=== PATIENT | male | born 1940 | race Caucasian/White ===

== ENCOUNTER 2016-07-09 11:23 | Inpatient (IN) | payer MEDICARE, OTHER ==
[~2016-07-09] VITALS: Ht 182.9 cm; Wt 79.4 kg
[2016-07-09] MEDS ORDERED: ALBUTEROL FS 2.5 MG/3 ML VIAL.NEB NEB ONE (11:30)
[2016-07-09] MEDS ORDERED: IPRATROPIUM NEB FS 0.5 MG/2.5 ML AMPUL.NEB NEB ONE (11:30)
[2016-07-09] MEDS ORDERED: ALBUTEROL FS 2.5 MG/3 ML VIAL.NEB ONE (11:41)
[2016-07-09] MEDS ORDERED: IPRATROPIUM NEB FS 0.5 MG/2.5 ML AMPUL.NEB ONE (11:41)
[2016-07-09 11:49] LABS: APPEARANCE,URINE Clear (CLEAR); BILIRUBIN,URINE Negative (NEGATIVE); BLOOD, URINE Trace-intact Ery/uL (NEGATIVE); COLOR,URINE Yellow (YELLOW); KETONES,URINE Negative (NEGATIVE); LEUKOCYTE ESTERASE ,URINE Negative (NEGATIVE); NITRITE, URINE Negative (NEGATIVE); PH,URINE 5.5 (5.0-8.0); PROTEIN,URINE 100 mg/dl (NEGATIVE); UGLUCOSE Negative (NEGATIVE); UROBILINOGEN,URINE 0.2 EU/dL (0.2)
[2016-07-09 11:52] LABS: BASOPHILS % (AUTO) 0.3 % (0.0-2.0); EOSINOPHILS # (AUTO) 0.3 /CMM (0.0-0.7); EOSINOPHILS % (AUTO) 3.5 % (0.0-6.0); HEMATOCRIT 39 % (39-51); HEMOGLOBIN 13.1 g/dL (13.5-17.5); LYMPHOCYTES # (AUTO) 0.8 /CMM (0.8-4.8); LYMPHOCYTES % (AUTO) 8.3 % (20.0-44.0); MEAN CORPUSCULAR HEMOGLOBIN 33 PG (26.0-33.0); MEAN CORPUSCULAR HGB CONC 33 g/dl (31.0-36.0); MEAN CORPUSCULAR VOLUME 99 fL (80-96); MONOCYTES # (AUTO) 0.8 /CMM (0.1-1.30); MONOCYTES % (AUTO) 8.9 % (2.0-12.0); NEUTROPHILS # (AUTO) 7.4 /CMM (1.8-8.9); PLATELET COUNT (AUTO) 183 /CMM (150-450); RDW COEFFICIENT OF VARIATION 13.8 (11.5-15.0); RED BLOOD CELL COUNT(AUTO) 3.94 MIL/uL (4.5-6.0); WHITE BLOOD COUNT (AUTO) 9.3 K/uL (4.3-11.0)
[2016-07-09 12:01] LABS: CARBON DIOXIDE 28 mmol/L (21-32); CHLORIDE 108 mmol/L (98-107); CREATININE 1.2 mg/dL (0.6-1.3); GLUCOSE 111 mg/dL (74-106); POTASSIUM 4.1 mmol/L (3.5-5.1); SODIUM SERUM 142 mmol/L (136-145); UREA NITROGEN, BLOOD 39 mg/dL (7-18)
[2016-07-09 12:05] LABS: PROTHROMBIN TIME 10.4 SECS (9.5-12.7)
[2016-07-09 12:06] LABS: BACTERIA,URINE Rare /HPF (None Seen); RBC,URINE 0-2 /HPF (0-2); SQUAMOUS EPITHELIAL CELL,UR Few /HPF (None Seen); WBC,URINE 0-2 /HPF (0-3)
[2016-07-09 12:07] LABS: ALANINE AMINOTRANSFERASE 16 U/L (12-78); ALBUMIN 2.8 g/dL (3.4-5.0); ALKALINE PHOSPHATASE 225 U/L (46-116); ASPARTATE AMINOTRANSFERASE 34 U/L (15-37); BILIRUBIN,DIRECT 0.1 mg/dL (0.0-0.2); BILIRUBIN,TOTAL 0.3 mg/dL (0.2-1.0)
[2016-07-09 12:08] LABS: TROPONIN I < 0.017 ng/mL (0.00-0.056)
[2016-07-09] MEDS ORDERED: FINA5TAB11 GT (12:09)
[2016-07-09] MEDS ORDERED: DEXT15DR6 EACHEYE (12:09)
[2016-07-09] MEDS ORDERED: LACT-209 GT (12:09)
[2016-07-09] MEDS ORDERED: HYDR-4077 GT (12:09)
[2016-07-09] MEDS ORDERED: CARB-93 GT (12:09)
[2016-07-09] MEDS ORDERED: MEMA10TA GT (12:09)
[2016-07-09] MEDS ORDERED: CLON0.1T GT (12:09)
[2016-07-09] MEDS ORDERED: MULT1TAB11 GT (12:09)
[2016-07-09] MEDS ORDERED: FERR-58 GT (12:09)
[2016-07-09] MEDS ORDERED: LEVO50TA8 GT (12:09)
[2016-07-09] MEDS ORDERED: QUET25TA GT ×2 (12:09)
[2016-07-09] MEDS ORDERED: ASPI81TA2 PO (12:09)
[2016-07-09] MEDS ORDERED: DOXA1TAB GT (12:09)
[2016-07-09] MEDS ORDERED: ACET-868 GT (12:09)
[2016-07-09] MEDS ORDERED: CYAN500T2 GT (12:09)
[2016-07-09] MEDS ORDERED: ALBU2.5V13 NEB (12:09)
[2016-07-09] MEDS ORDERED: FOLI1TAB16 GT (12:09)
[2016-07-09] MEDS ORDERED: DIVA250T4 PO (12:09)
[2016-07-09] MEDS ORDERED: IPRA0.2S49 NEB (12:09)
[2016-07-09] MEDS ORDERED: CALC-15 GT (12:09)
[2016-07-09] MEDS ORDERED: DONE5TAB3 PO (12:09)
[2016-07-09] MEDS ORDERED: CEFEPIME 2 GM in IV D5W 50 ML IV ONE (13:00)
[2016-07-09] MEDS ORDERED: LEVOFLOXACIN 750 MG /D5W 150ML 150 ML IV ONE ×2 (13:00→13:26)
[2016-07-09] MEDS ORDERED: IV SET PRIMARY 1 EA INFUS.SET MC ONE (13:26)
[2016-07-09] MEDS ORDERED: IV NS 0.9% 2,000 ML ONE (13:26)
[2016-07-09] MEDS ORDERED: IV SET PRIMARY PUMP SET 1 EA INFUS.SET MC ONE ×2 (13:26→16:16)
[2016-07-09] MEDS ORDERED: IV NS 0.9% 500 ML IV ONE (13:26)
[2016-07-09] MEDS ORDERED: IV NS 0.9% 1,000 ML BAG IV ONE (13:30)
[2016-07-09 15:00] VITALS: BP 115/72
[2016-07-09] MEDS ORDERED: IPRATROPIUM NEB FS 0.5 MG/2.5 ML AMPUL.NEB NEB PRN (15:30)
[2016-07-09] MEDS: IPRATROPIUM NEB FS 0.5 MG/2.5 ML AMPUL.NEB NEB SCH ×2 (15:30→19:20)
[2016-07-09 16:00] VITALS: BP_SYST 115; BP_SYST 146; BP_DIAS 72; BP_DIAS 82
[2016-07-09] MEDS ORDERED: MISCELLANEOUS MED 1 EA EA XX ONE (16:00)
[2016-07-09] MEDS ORDERED: IV NS 0.9% 250 ML IV ONE (16:16)
[2016-07-09] MEDS ORDERED: SECONDARY IV SET 1 EA INFUS.SET MC ONE (16:16)
[2016-07-09] MEDS ORDERED: POLYVINYL ALCOHOL 15 ML BOTTLE EACHEYE PRN (16:30)
[2016-07-09] MEDS ORDERED: ACETAMINOPHEN 325 MG TABLET PO PRN (16:30)
[2016-07-09] MEDS ORDERED: DIVALPROEX SODIUM 250 MG TABLET.DR PO SCH (17:00)
[2016-07-09] MEDS: CEFTRIAXONE 1 G in IV D5W 50 ML IV SCH (17:05)
[2016-07-09] MEDS ORDERED: DIVALPROEX SODIUM 125 MG CAP.SPRINK GT SCH (18:00)
[2016-07-09] MEDS: AZITHROMYCIN 500 MG in IV D5W 250 ML IV SCH (18:05)
[2016-07-09] MEDS: DIVALPROEX SODIUM 125 MG CAP.SPRINK GT SCH (18:06)
[2016-07-09] MEDS: CARBIDOPA/LEVODOPA 25/100 MG 1 UDTAB GT SCH ×2 (18:06→21:22)
[2016-07-09] MEDS: hydrALAZINE HCL 50 MG TABLET GT SCH (18:07)
[2016-07-09] MEDS: MEMANTINE HCL 5 MG TABLET PO SCH (18:13)
[2016-07-09 19:50] VITALS: BP 130/74
[2016-07-09 20:00] VITALS: BP 130/74
[2016-07-09] MEDS: DONEPEZIL 5 MG TABLET PO SCH (21:23)
[2016-07-09] MEDS: QUETIAPINE FUMARATE 25 MG TABLET GT SCH (21:23)
[2016-07-09] MEDS: FIBERSOURCE HN 1,000 ML BOTTLE GT PRN (22:23)
[2016-07-10] VITALS (9 sets, daily range): BP systolic 101–135; BP diastolic 63–79
[2016-07-10 07:13] LABS: BASOPHILS % (AUTO) 0.1 % (0.0-2.0); EOSINOPHILS % (AUTO) 0.1 % (0.0-6.0); HEMATOCRIT 39 % (39-51); HEMOGLOBIN 12.8 g/dL (13.5-17.5); LYMPHOCYTES # (AUTO) 1.2 /CMM (0.8-4.8); LYMPHOCYTES % (AUTO) 9.7 % (20.0-44.0); MEAN CORPUSCULAR HEMOGLOBIN 33 PG (26.0-33.0); MEAN CORPUSCULAR HGB CONC 33 g/dl (31.0-36.0); MEAN CORPUSCULAR VOLUME 100 fL (80-96); MONOCYTES # (AUTO) 0.9 /CMM (0.1-1.30); MONOCYTES % (AUTO) 7.3 % (2.0-12.0); NEUTROPHILS # (AUTO) 10.1 /CMM (1.8-8.9); NEUTROPHILS % (AUTO) 82.8 % (43.0-81.0); PLATELET COUNT (AUTO) 184 /CMM (150-450); RED BLOOD CELL COUNT(AUTO) 3.85 MIL/uL (4.5-6.0); WHITE BLOOD COUNT (AUTO) 12.2 K/uL (4.3-11.0)
[2016-07-10 07:22] LABS: ABG BASE EXCESS -0.6 mmol/L; ABG OXYGEN SATURATION 94.9 % (92.0-98.5); ABG PCO2 33.9 mmHg (35.0-45.0); ABG PH 7.446 (7.350-7.450); AaDO2 242.4 mmHg; COHb 0.5 % (0.5-1.5); MetHb 0.5 % (0.0-1.5); SITE, ABG Right Brachial; VENT MODE, BG SIMPLE MASK
[2016-07-10 07:32] LABS: CALCIUM, SERUM 8.8 mg/dL (8.5-10.1); CREATININE 1.5 mg/dL (0.6-1.3); POTASSIUM 4.6 mmol/L (3.5-5.1)
[2016-07-10] MEDS: IPRATROPIUM NEB FS 0.5 MG/2.5 ML AMPUL.NEB NEB SCH ×4 (07:58→18:56)
[2016-07-10] MEDS: hydrALAZINE HCL 50 MG TABLET GT SCH ×2 (08:42→16:35)
[2016-07-10] MEDS: DOXAZOSIN MESYLATE (1 MG) 1 MG TABLET GT SCH (08:43)
[2016-07-10] MEDS: DIVALPROEX SODIUM 125 MG CAP.SPRINK GT SCH ×3 (08:43→16:47)
[2016-07-10] MEDS: QUETIAPINE FUMARATE 25 MG TABLET GT SCH ×2 (08:43→21:55)
[2016-07-10] MEDS: MEMANTINE HCL 5 MG TABLET PO SCH ×2 (08:43→16:47)
[2016-07-10] MEDS: FOLIC ACID 1 MG TABLET GT SCH (08:43)
[2016-07-10] MEDS: LEVOTHYROXINE SODIUM 50 MCG TABLET GT SCH (08:43)
[2016-07-10] MEDS: FINASTERIDE (5 MG) 5 MG TABLET GT SCH (08:43)
[2016-07-10] MEDS: ATORVASTATIN 10 MG TABLET PO SCH (08:44)
[2016-07-10] MEDS: CHOLECALCIFEROL 1,000 UNIT TABLET (VIT D3) PO SCH (08:44)
[2016-07-10] MEDS: CARBIDOPA/LEVODOPA 25/100 MG 1 UDTAB GT SCH ×4 (08:54→21:54)
[2016-07-10] MEDS: FIBERSOURCE HN 1,000 ML BOTTLE GT PRN (13:09)
[2016-07-10] MEDS: CEFTRIAXONE 1 G in IV D5W 50 ML IV SCH (15:59)
[2016-07-10] MEDS: IV D5W 1,000 ML IV PRN (16:48)
[2016-07-10] MEDS: AZITHROMYCIN 500 MG in IV D5W 250 ML IV SCH (16:53)
[2016-07-10] MEDS: DONEPEZIL 5 MG TABLET PO SCH (21:55)
[2016-07-11] VITALS (10 sets, daily range): BP systolic 119–130; BP diastolic 68–75
[2016-07-11 06:50] LABS: BASOPHILS % (AUTO) 0.2 % (0.0-2.0); EOSINOPHILS # (AUTO) 0.1 /CMM (0.0-0.7); EOSINOPHILS % (AUTO) 0.6 % (0.0-6.0); HEMATOCRIT 34 % (39-51); HEMOGLOBIN 11.6 g/dL (13.5-17.5); LYMPHOCYTES # (AUTO) 1.3 /CMM (0.8-4.8); LYMPHOCYTES % (AUTO) 13.4 % (20.0-44.0); MEAN CORPUSCULAR HEMOGLOBIN 34 PG (26.0-33.0); MEAN CORPUSCULAR HGB CONC 34 g/dl (31.0-36.0); MEAN CORPUSCULAR VOLUME 100 fL (80-96); MONOCYTES # (AUTO) 0.7 /CMM (0.1-1.30); MONOCYTES % (AUTO) 7.9 % (2.0-12.0); NEUTROPHILS # (AUTO) 7.4 /CMM (1.8-8.9); NEUTROPHILS % (AUTO) 77.9 % (43.0-81.0); PLATELET COUNT (AUTO) 173 /CMM (150-450); RDW COEFFICIENT OF VARIATION 14.4 (11.5-15.0); RED BLOOD CELL COUNT(AUTO) 3.43 MIL/uL (4.5-6.0); WHITE BLOOD COUNT (AUTO) 9.5 K/uL (4.3-11.0)
[2016-07-11 07:08] LABS: CALCIUM, SERUM 8.6 mg/dL (8.5-10.1); CREATININE 1.3 mg/dL (0.6-1.3)
[2016-07-11] MEDS: IPRATROPIUM NEB FS 0.5 MG/2.5 ML AMPUL.NEB NEB SCH ×4 (07:30→19:59)
[2016-07-11] MEDS: MEMANTINE HCL 5 MG TABLET PO SCH ×2 (09:13→16:11)
[2016-07-11] MEDS: FOLIC ACID 1 MG TABLET GT SCH (09:14)
[2016-07-11] MEDS: hydrALAZINE HCL 50 MG TABLET GT SCH ×2 (09:14→16:11)
[2016-07-11] MEDS: FINASTERIDE (5 MG) 5 MG TABLET GT SCH (09:15)
[2016-07-11] MEDS: ATORVASTATIN 10 MG TABLET PO SCH (09:15)
[2016-07-11] MEDS: QUETIAPINE FUMARATE 25 MG TABLET GT SCH ×2 (09:18→21:58)
[2016-07-11] MEDS: LEVOTHYROXINE SODIUM 50 MCG TABLET GT SCH (09:18)
[2016-07-11] MEDS: DOXAZOSIN MESYLATE (1 MG) 1 MG TABLET GT SCH (09:20)
[2016-07-11] MEDS: CHOLECALCIFEROL 1,000 UNIT TABLET (VIT D3) PO SCH (09:21)
[2016-07-11] MEDS: DIVALPROEX SODIUM 125 MG CAP.SPRINK GT SCH ×3 (09:21→16:11)
[2016-07-11] MEDS: Z GUARD REMEDY 2 OZ OINT TP SCH (09:24)
[2016-07-11] MEDS: CARBIDOPA/LEVODOPA 25/100 MG 1 UDTAB GT SCH ×4 (09:27→21:20)
[2016-07-11] MEDS: FIBERSOURCE HN 1,000 ML BOTTLE GT PRN (09:32)
[2016-07-11] MEDS: IV D5W 1,000 ML IV PRN (10:47)
[2016-07-11] MEDS: CEFTRIAXONE 1 G in IV D5W 50 ML IV SCH (15:29)
[2016-07-11] MEDS: AZITHROMYCIN 500 MG in IV D5W 250 ML IV SCH (16:13)
[2016-07-11] MEDS: DONEPEZIL 5 MG TABLET PO SCH (21:58)
[2016-07-12] VITALS (8 sets, daily range): BP systolic 107–144; BP diastolic 65–74
[2016-07-12] MEDS: IV D5W 1,000 ML IV PRN (05:18)
[2016-07-12] MEDS: FIBERSOURCE HN 1,000 ML BOTTLE GT PRN (05:18)
[2016-07-12 06:57] LABS: BASOPHILS % (AUTO) 0.2 % (0.0-2.0); EOSINOPHILS # (AUTO) 0.2 /CMM (0.0-0.7); EOSINOPHILS % (AUTO) 2.4 % (0.0-6.0); HEMATOCRIT 32 % (39-51); HEMOGLOBIN 10.9 g/dL (13.5-17.5); LYMPHOCYTES # (AUTO) 1.1 /CMM (0.8-4.8); MEAN CORPUSCULAR HEMOGLOBIN 34 PG (26.0-33.0); MEAN CORPUSCULAR HGB CONC 34 g/dl (31.0-36.0); MEAN CORPUSCULAR VOLUME 99 fL (80-96); MONOCYTES # (AUTO) 0.5 /CMM (0.1-1.30); MONOCYTES % (AUTO) 8.2 % (2.0-12.0); NEUTROPHILS # (AUTO) 4.5 /CMM (1.8-8.9); NEUTROPHILS % (AUTO) 71.2 % (43.0-81.0); PLATELET COUNT (AUTO) 164 /CMM (150-450); RED BLOOD CELL COUNT(AUTO) 3.23 MIL/uL (4.5-6.0); WHITE BLOOD COUNT (AUTO) 6.3 K/uL (4.3-11.0)
[2016-07-12 07:15] LABS: CALCIUM, SERUM 8.5 mg/dL (8.5-10.1); CREATININE 1.1 mg/dL (0.6-1.3); POTASSIUM 4.2 mmol/L (3.5-5.1)
[2016-07-12 07:22] LABS: THYROID STIMULATING HORMONE 1.442 uIU/mL (0.358-3.74)
[2016-07-12] MEDS: IPRATROPIUM NEB FS 0.5 MG/2.5 ML AMPUL.NEB NEB SCH ×4 (08:14→19:40)
[2016-07-12] MEDS: DIVALPROEX SODIUM 125 MG CAP.SPRINK GT SCH ×3 (09:15→17:27)
[2016-07-12] MEDS: FOLIC ACID 1 MG TABLET GT SCH (09:16)
[2016-07-12] MEDS: FINASTERIDE (5 MG) 5 MG TABLET GT SCH (09:16)
[2016-07-12] MEDS: hydrALAZINE HCL 50 MG TABLET GT SCH ×2 (09:18→17:28)
[2016-07-12] MEDS: MEMANTINE HCL 5 MG TABLET PO SCH ×2 (09:19→17:28)
[2016-07-12] MEDS: DOXAZOSIN MESYLATE (1 MG) 1 MG TABLET GT SCH (09:19)
[2016-07-12] MEDS: ATORVASTATIN 10 MG TABLET PO SCH (09:20)
[2016-07-12] MEDS: CARBIDOPA/LEVODOPA 25/100 MG 1 UDTAB GT SCH ×4 (09:22→21:32)
[2016-07-12] MEDS: CHOLECALCIFEROL 1,000 UNIT TABLET (VIT D3) PO SCH (09:22)
[2016-07-12] MEDS: Z GUARD REMEDY 2 OZ OINT TP SCH (10:44)
[2016-07-12] MEDS: LEVOTHYROXINE SODIUM 50 MCG TABLET GT SCH (10:45)
[2016-07-12] MEDS: CEFTRIAXONE 1 G in IV D5W 50 ML IV SCH (17:27)
[2016-07-12] MEDS: AZITHROMYCIN 250 MG TABLET NG SCH (17:27)
[2016-07-12] MEDS: Z GUARD REMEDY 2 OZ OINT TP PRN (20:00)
[2016-07-12] MEDS: DONEPEZIL 5 MG TABLET PO SCH (21:32)
[2016-07-13] MEDS: IV D5W 1,000 ML IV PRN (06:04)
[2016-07-13] MEDS: Z GUARD REMEDY 2 OZ OINT TP PRN (06:04)
[2016-07-13] MEDS: FIBERSOURCE HN 1,000 ML BOTTLE GT PRN (06:04)
[2016-07-13 07:01] VITALS: BP 117/65
[2016-07-13 08:00] VITALS: BP 116/58
[2016-07-13] MEDS: DOXAZOSIN MESYLATE (1 MG) 1 MG TABLET GT SCH (08:42)
[2016-07-13] MEDS: MEMANTINE HCL 5 MG TABLET PO SCH ×2 (08:42→16:26)
[2016-07-13] MEDS: FOLIC ACID 1 MG TABLET GT SCH (08:42)
[2016-07-13] MEDS: CHOLECALCIFEROL 1,000 UNIT TABLET (VIT D3) PO SCH (08:42)
[2016-07-13] MEDS: LEVOTHYROXINE SODIUM 50 MCG TABLET GT SCH (08:42)
[2016-07-13] MEDS: DIVALPROEX SODIUM 125 MG CAP.SPRINK GT SCH ×3 (08:43→16:26)
[2016-07-13] MEDS: ATORVASTATIN 10 MG TABLET PO SCH (08:43)
[2016-07-13] MEDS: FINASTERIDE (5 MG) 5 MG TABLET GT SCH (08:43)
[2016-07-13] MEDS: hydrALAZINE HCL 50 MG TABLET GT SCH ×2 (08:43→16:27)
[2016-07-13] MEDS: CARBIDOPA/LEVODOPA 25/100 MG 1 UDTAB GT SCH ×4 (08:46→21:20)
[2016-07-13] MEDS: Z GUARD REMEDY 2 OZ OINT TP SCH (08:47)
[2016-07-13] MEDS: IPRATROPIUM NEB FS 0.5 MG/2.5 ML AMPUL.NEB NEB SCH ×4 (09:36→20:02)
[2016-07-13 16:00] VITALS: BP 112/71
[2016-07-13] MEDS: CEFTRIAXONE 1 G in IV D5W 50 ML IV SCH (16:13)
[2016-07-13] MEDS: AZITHROMYCIN 250 MG TABLET NG SCH (16:26)
[2016-07-13 20:00] VITALS: BP 142/83
[2016-07-13] MEDS: DONEPEZIL 5 MG TABLET PO SCH (21:21)
[2016-07-14] MEDS: IV D5W 1,000 ML IV PRN (00:28)
[2016-07-14] MEDS: FIBERSOURCE HN 1,000 ML BOTTLE GT PRN (02:20)
[2016-07-14 08:00] VITALS: BP 151/89
[2016-07-14] MEDS: MEMANTINE HCL 5 MG TABLET PO SCH ×2 (08:28→16:24)
[2016-07-14] MEDS: FINASTERIDE (5 MG) 5 MG TABLET GT SCH (08:28)
[2016-07-14] MEDS: CARBIDOPA/LEVODOPA 25/100 MG 1 UDTAB GT SCH ×3 (08:28→16:28)
[2016-07-14] MEDS: ATORVASTATIN 10 MG TABLET PO SCH (08:29)
[2016-07-14] MEDS: CHOLECALCIFEROL 1,000 UNIT TABLET (VIT D3) PO SCH (08:29)
[2016-07-14] MEDS: LEVOTHYROXINE SODIUM 50 MCG TABLET GT SCH (08:29)
[2016-07-14] MEDS: FOLIC ACID 1 MG TABLET GT SCH (08:29)
[2016-07-14] MEDS: DOXAZOSIN MESYLATE (1 MG) 1 MG TABLET GT SCH (08:29)
[2016-07-14] MEDS: Z GUARD REMEDY 2 OZ OINT TP SCH (08:30)
[2016-07-14] MEDS ORDERED: hydrALAZINE HCL 50 MG TABLET GT SCH (09:00)
[2016-07-14] MEDS: IPRATROPIUM NEB FS 0.5 MG/2.5 ML AMPUL.NEB NEB SCH ×2 (09:02→11:56)
[2016-07-14] MEDS ORDERED: SECONDARY IV SET 1 EA INFUS.SET MC ONE (15:18)
[2016-07-14] MEDS: CEFTRIAXONE 1 G in IV D5W 50 ML IV SCH (15:36)
[2016-07-14 16:00] VITALS: BP 110/66
[2016-07-14] MEDS: AZITHROMYCIN 250 MG TABLET NG SCH (16:24)
== END 2016-07-14 17:20 | DRG 871 ==
LOC: ER 11:32 → MED 13:20 → TELE 07-10 01:40 → MED 07-12 09:19
PROVIDERS: ADMIT Internal Medicine; ATTEND Internal Medicine
DX: A41.9 Sepsis, unspecified organism (principal); J69.0 Pneumonitis due to inhalation of food and vomit; J96.01 Acute respiratory failure with hypoxia; G93.40 Encephalopathy, unspecified; J15.9 Unspecified bacterial pneumonia; E87.0 Hyperosmolality and hypernatremia; N17.9 Acute kidney failure, unspecified; I10 Essential (primary) hypertension; E11.9 Type 2 diabetes mellitus without complications; I25.10 Atherosclerotic heart disease of native coronary artery without angina pectoris; E03.9 Hypothyroidism, unspecified; G20 Parkinson's disease; G30.9 Alzheimer's disease, unspecified; F02.80 Dementia in other diseases classified elsewhere, unspecified severity, without behavioral disturbance, psychotic disturbance, mood disturbance, and anxiety; R31.9 Hematuria, unspecified; Z85.46 Personal history of malignant neoplasm of prostate; Z87.891 Personal history of nicotine dependence; Z93.1 Gastrostomy status; Z98.61 Coronary angioplasty status
CPT/HCPCS: 36415; 36600; 70450-TC; 71010-TC; 80048-TC; 80076-TC; 81000-TC; 83605-TC; 84443-TC; 84484-TC; 85025-TC; 85730-TC; 87040-TC; 87081-TC; 87086-TC; 94799-TC; A4606; J0456; J0692; J0696; J1956; J7030; J7040; J7050; J7060; J7070; Z7610

== ENCOUNTER 2017-06-14 12:21 | Inpatient (IN) | payer MEDICARE, OTHER ==
[~2017-06-14] VITALS: Ht 182.9 cm; Wt 77.6 kg
[~2017-06-14 12:21] MED LIST: ACET-868 GT; CARB-93 GT; DEXT15DR6 EACHEYE; DIVA250T4 PO; DONE5TAB7 GT; DOXA1TAB GT; FINA5TAB11 GT; FOLI1TAB16 GT; HYDR-4077 GT; LEVO50TA8 GT; MEMA10TA GT; QUET25TA GT
--- NOTE | 2017-06-14 12:21 | NUR ---
PADMINI Camejo FROM [facility] C/O SOB, ZY=[id number]/DL IN THE FIELD SPO2=94% ON RA IN ER. GTUBE. MORE THAN ALTERED THAN BASELINE DEMENTIA PER PARAMEDICS ACCORDING TO SNF. PLACED ON MONITOR. AWAITING MD ORDER.
--- NOTE | 2017-06-14 12:30 | NUR ---
RT WRIST #18 IV ACCESS. BLOOD SAMPLE COLLECTED SENT TO LAB
[2017-06-14 12:44] LABS: BASOPHILS # (AUTO) 0.1 /CMM (0.0-0.2); BASOPHILS % (AUTO) 1.3 % (0.0-2.0); EOSINOPHILS % (AUTO) 2.8 % (0.0-6.0); HEMATOCRIT 51 % (39-51); HEMOGLOBIN 17.4 g/dL (13.5-17.5); LYMPHOCYTES % (AUTO) 41.5 % (20.0-44.0); MEAN CORPUSCULAR HGB CONC 34 g/dl (31.0-36.0); MEAN CORPUSCULAR VOLUME 97 fL (80-96); MONOCYTES # (AUTO) 0.3 /CMM (0.1-1.30); MONOCYTES % (AUTO) 6.2 % (2.0-12.0); NEUTROPHILS # (AUTO) 2.3 /CMM (1.8-8.9); NEUTROPHILS % (AUTO) 48.2 % (43.0-81.0); PLATELET COUNT (AUTO) 149 /CMM (150-450); RDW COEFFICIENT OF VARIATION 14.8 (11.5-15.0); RED BLOOD CELL COUNT(AUTO) 5.29 MIL/uL (4.5-6.0); WHITE BLOOD COUNT (AUTO) 4.8 K/uL (4.3-11.0)
--- NOTE | 2017-06-14 12:48 | NUR ---
ADMINISTRATIVE PROFESSIONAL AT BEDSIDE
[2017-06-14 12:54] LABS: CALCIUM, SERUM 9.4 mg/dL (8.5-10.1); CARBON DIOXIDE 23 mmol/L (21-32); CHLORIDE 103 mmol/L (98-107); CREATININE 1.5 mg/dL (0.6-1.3); GLUCOSE 110 mg/dL (74-106); POTASSIUM 4.3 mmol/L (3.5-5.1); SODIUM SERUM 139 mmol/L (136-145); UREA NITROGEN, BLOOD 28 mg/dL (7-18)
[2017-06-14 12:58] LABS: INR 0.92 (0.85-1.15)
[2017-06-14] MEDS ORDERED: IV NS 0.9% 1,000 ML BAG IV ONE (13:00)
[2017-06-14 13:02] LABS: TROPONIN I < 0.017 ng/mL (0.00-0.056)
[2017-06-14] MEDS ORDERED: ATOR10TA GT (13:02)
[2017-06-14] MEDS ORDERED: HYDR-4076 GT (13:02)
[2017-06-14] MEDS ORDERED: NUTR250L50 GT (13:02)
[2017-06-14] MEDS ORDERED: CHOL200026 GT (13:02)
[2017-06-14] MEDS ORDERED: LEVO25TA9 GT (13:02)
[2017-06-14 13:07] LABS: ALANINE AMINOTRANSFERASE 16 U/L (12-78); ALBUMIN 3.3 g/dL (3.4-5.0); ALKALINE PHOSPHATASE 166 U/L (46-116); ASPARTATE AMINOTRANSFERASE 37 U/L (15-37); B-TYPE NATRIURETIC PEPTIDE 121 PG/ML (0-125); BILIRUBIN,DIRECT 0.1 mg/dL (0.0-0.2); BILIRUBIN,TOTAL 0.4 mg/dL (0.2-1.0)
--- NOTE | 2017-06-14 13:07 | NUR ---
ON PHONE WITH DR MOJICA.
--- NOTE | 2017-06-14 13:10 | NUR ---
CALLED NURSING BUYER PLANNER AND REQUESTED A TELE BED FOR THIS PT.
--- NOTE | 2017-06-14 13:21 | NUR ---
VERBAL ORDER DR GREENFIELD IN AND OUT CATH FOR NO URINE. URINE SAMPLE COLLECTED SENT TO LAB
[2017-06-14 13:30] LABS: APPEARANCE,URINE Slightly Cloudy (CLEAR); BILIRUBIN,URINE Negative (NEGATIVE); BLOOD, URINE Trace-intact Ery/uL (NEGATIVE); COLOR,URINE Yellow (YELLOW); KETONES,URINE Negative (NEGATIVE); LEUKOCYTE ESTERASE ,URINE Negative (NEGATIVE); NITRITE, URINE Negative (NEGATIVE); PH,URINE 5.5 (5.0-8.0); PROTEIN,URINE >=300 mg/dl (NEGATIVE); UGLUCOSE Negative (NEGATIVE); UROBILINOGEN,URINE 0.2 EU/dL (0.2)
[2017-06-14] MEDS ORDERED: LEVOFLOXACIN 750 MG /D5W 150ML 150 ML IV ONE ×2 (13:30→13:47)
[2017-06-14 13:38] LABS: BACTERIA,URINE Rare /HPF (None Seen); SQUAMOUS EPITHELIAL CELL,UR Rare /HPF (None Seen)
--- NOTE | 2017-06-14 13:51 | NUR ---
PT IS ASSIGNED TO [facility]# [id number], PT IS DIAGNOSED WITH PNEUMONIA, AND DR ADAME IS THE ACCEPTING MD.
[2017-06-14] MEDS ORDERED: IV NS 0.9% 500 ML BAG IV ONE (14:00)
--- NOTE | 2017-06-14 14:04 | NUR ---
GAVE REPORT TO JAKE [facility] TELE ROOM 113-[address] ADAME
[2017-06-14 14:10] VITALS: BP 164/88
--- NOTE | 2017-06-14 14:10 | NUR ---
RN NOTE RECEIVED REPORT FROM BRIAN IN ER. RECEIVED PATIENT 77 YEAR OLD MALE BROUGHT INTO HOSPITAL BY AMBULANCE FROM [facility]. ALERT AND ORIENT X 1, HE IS ABLE TO RESPOND VERY MINIMAL. ON APPEALS REPRESENTATIVE SINUS RHYTHM HR OF 80, INCONTINENT, PATIENT WEARING DIAPER. ALL WOUND PICTURES TAKEN AND DOCUMENTED IN CHART. RIGHT WRIST GAUGE 18 IV SITE INTACT AND PATENT. GT SITE INTACT AND PATENT. AWAITING FOR FURTHER ORDERS FOR PATIENT FEEDING TUBE. BED LOCKED AND LOW POSITION. PLACED CALL LIGHT WITHIN REACH. WILL CONTINUE TO MONITOR CONTINUITY OF CARE.
--- NOTE | 2017-06-14 15:55 | NUR ---
RN NOTE SPOKE TO ESE FROM DIETARY TO RECOMMEND INITIAL TUBE FEEDING FOR PATIENT. SHE STATED TO HAVE PATIENT START ON GLUCERNA 1.2 @ 20ML/HR INCREASE 10ML/HR Q6H UNTIL GOAL OF 65ML/HR IS REACHED. CARRIED OUT AND NOTED.
[2017-06-14] MEDS ORDERED: GLUCERNA 1.2 1,000 ML BOTTLE NG PRN (16:30)
--- NOTE | 2017-06-14 19:03 | NUR ---
RN NOTE PATIENT REMAINED STABLE THROUGHOUT SHIFT. NO ACUTE CHANGES OR DISTRESS NOTED. WILL ENDORSE TO NEXT SHIFT TO CONTINUE CONTINUITY OF CARE
--- NOTE | 2017-06-14 19:30 | NUR ---
SECURITY ASSESSOR INITIAL NOTE PT RECEIVED AWAKE IN BED. A/O X1 AND NOTED TO MUMBLE WORDS/SOUNDS. ON 2L OF O2 VIA NC AND SATURATING 96%. BREATHING EVEN AND UNLABORED. TELE- SR. IV CLEAN, DRY AND PATENT. GT FEEDING WELL TOLERATED WITHOUT RESIDUALS NOTED. HOB ELEVATED AND ON ASPIRATION PRECAUTIONS. BED ALARM ENABLED. LEFT MESSAGE WITH AND AWAITING CALL BACK FOR ORDERS. WILL CONTINUE TO MONITOR.
[2017-06-14 20:00] VITALS: BP 171/96
[2017-06-14] MEDS ORDERED: ALBUTEROL HALF STRENGTH 1.25 MG/3 ML VIAL.NEB NEB PRN (22:00)
[2017-06-14] MEDS ORDERED: IV NS 0.9% 1,000 ML IV SCH (22:00)
[2017-06-14] MEDS ORDERED: JEVITY 1.2 CAL 1,000 ML BOTTLE GT PRN (22:00)
--- NOTE | 2017-06-14 22:00 | NUR ---
HAND COMPOSITOR NOTE SPOKE WITH DR. MOJICA WITH ORDERS TO START IVF NS @75 X3L AND THEN @50 MLS/HR CONTINUOUS. START ROCEPHIN 1G QD, DOXYCYCLINE 100MG BID,ASA 81MG QD, RT ORDERS ALBUTEROL 1.25 Q4 PRN FOR SOB/ CONGESTION, ISORDIL 20MG BID AND AM LABS. ORDERS TO KEEP O2 SAT >92% TOLERATED. GTF JEVITY 1.2 @60MLS/HR. ORDERS NOTED AND CARRIED OUT.
[2017-06-14] MEDS: DOXYCYCLINE HYCLATE (100 MG) 100 MG TABLET PO SCH (22:22)
[2017-06-14] MEDS: ATORVASTATIN 10 MG TABLET GT SCH (22:23)
[2017-06-14] MEDS: ISOSORBIDE DINITRATE (20MG) 20 MG TABLET PO SCH (22:23)
[2017-06-14] MEDS: DONEPEZIL 5 MG TABLET GT SCH (22:24)
[2017-06-14] MEDS ORDERED: CEFTRIAXONE 1 G VIAL ONE (22:26)
[2017-06-14] MEDS: CEFTRIAXONE 1 G in IV D5W 50 ML IV SCH (22:28)
--- NOTE | 2017-06-14 22:45 | NUR ---
HEALTH THERAPIST NOTES RECEIVED PT FROM TRESA FONG. PT IS IN BED, AWAKE, A/O X1. MUMBLES WORDS. NO DISTRESS, NO SOB NOTED. ON 02 @ 2 LPM VIA NC, WITH 02 SATURATION OF 94%. PT IS SR 79 ON TELE MONITOR. GTF TACOS WELL. HOB ELEVATED FOR ASPIRATION PRECAUTION. IV ON RIGHT WRIST INTACT AND PATENT, NO S/S OF INFILTRATION NOTED, IV ATB AND IVF INFUSING WELL. NO S/S OF PAIN OR DISCOMFORT AT THIS TIME. ALL NEEDS ATTENDED AND MET. SAFETY PRECAUTIONS OBSERVED. CALL LIGHT WITHIN REACH. WILL CONT TO MONITOR.
--- NOTE | 2017-06-14 23:00 | NUR ---
BENDER MACHINE OPERATOR NOTE GAVE REPORT TO ELLI RN FOR CONTINUITY OF CARE.
[2017-06-15] VITALS: BP 112/62
[2017-06-15 04:00] VITALS: BP 114/77
--- NOTE | 2017-06-15 04:00 | NUR ---
PLACED A CALL TO [facility] REGARDING PT'S CODE STATUS, PNA AND FLU VACCINE, SPOKE WITH TRESA HALE PT IS DNR AND SHE'LL FAX THE POLST TO US, AND PER TRESA HALE FLU VACCINE WAS GIVEN ON 05/22/17 AND FLU VACCINE WAS GIVEN ON DEC 01, 2016, VERIFIED WITH TRESA CHOPRA. WILL ENDORSE TO DAY SHIFT NURSE ACCORDINGLY.
--- NOTE | 2017-06-15 06:28 | NUR ---
ACID LEVELER NOTES PT FROM TRESA FONG. PT IS IN BED, AWAKE, A/O X1. MUMBLES WORDS/ SINGING . NO DISTRESS, NO SOB NOTED. ON 02 @ 2 LPM VIA NC, WITH 02 SATURATION OF 96%. PT IS SR 65 ON TELE MONITOR. GTF TACOS WELL. HOB ELEVATED FOR ASPIRATION PRECAUTION. IV ON RIGHT WRIST INTACT AND PATENT, NO S/S OF INFILTRATION NOTED, IV ATB AND IVF INFUSING WELL. NO S/S OF PAIN OR DISCOMFORT AT THIS TIME. ALL NEEDS ATTENDED AND MET. AM CARE RENDERED SAFETY PRECAUTIONS OBSERVED. CALL LIGHT WITHIN REACH. WILL ENDORSE TO NEXT SHIFT FRO MAGGY.
--- NOTE | 2017-06-15 07:14 | NUR ---
CAKE TESTER NOTES PATIENT RECEIVED RESTING INSIDE ROOM. SLEEPING, EASILY AROUSABLE THROUGH VERBAL AND TACTILE STIMULI. PATIENT NOTED TO MUMBLE WORDS. BREATHING EVEN AND UNLABORED. ON O2 AT 2L/MIN VIA NC. NO NASAL IRRITATION OR BLEEDING NOTED. NO SOB OR ACUTE DISTRESS NOTED. PATIENT DENIES ANY PAIN OR DISCOMFORT. NO FACIAL GRIMACE NOTED AT THIS TIME. GT IN PLACE AND INTACT, MAINTAINED ASPIRATION PRECAUTION, MAINTAINED HOB ELEVATION AT 45. IV SITE ON RIGHT WRIST INTACT AND PATENT, NO BLEEDING OR SWELLING NOTED. WILL CONTINUE TO MONITOR. BED LOCKED AND IN LOW POSITION. BILATERAL UPPER SIDE RAILS UP AND LOCKED. CALL LIGHT WITHIN EASY REACH
[2017-06-15] MEDS ORDERED: IV NS 0.9% 1,000 ML IV PRN (07:22)
[2017-06-15 07:42] LABS: CALCIUM, SERUM 8.3 mg/dL (8.5-10.1); CARBON DIOXIDE 27 mmol/L (21-32); CHLORIDE 110 mmol/L (98-107); CREATININE 1.3 mg/dL (0.6-1.3); GLUCOSE 95 mg/dL (74-106); POTASSIUM 4.1 mmol/L (3.5-5.1); SODIUM SERUM 143 mmol/L (136-145); UREA NITROGEN, BLOOD 22 mg/dL (7-18)
[2017-06-15 07:45] LABS: BASOPHILS # (AUTO) 0.1 /CMM (0.0-0.2); BASOPHILS % (AUTO) 1.6 % (0.0-2.0); HEMATOCRIT 40 % (39-51); HEMOGLOBIN 13.6 g/dL (13.5-17.5); LYMPHOCYTES # (AUTO) 1.3 /CMM (0.8-4.8); LYMPHOCYTES % (AUTO) 22.8 % (20.0-44.0); MEAN CORPUSCULAR HGB CONC 34 g/dl (31.0-36.0); MEAN CORPUSCULAR VOLUME 96 fL (80-96); MONOCYTES # (AUTO) 0.6 /CMM (0.1-1.30); MONOCYTES % (AUTO) 10.3 % (2.0-12.0); NEUTROPHILS # (AUTO) 3.6 /CMM (1.8-8.9); NEUTROPHILS % (AUTO) 62.3 % (43.0-81.0); PLATELET COUNT (AUTO) 170 /CMM (150-450); RDW COEFFICIENT OF VARIATION 14.6 (11.5-15.0); RED BLOOD CELL COUNT(AUTO) 4.14 MIL/uL (4.5-6.0); WHITE BLOOD COUNT (AUTO) 5.8 K/uL (4.3-11.0)
[2017-06-15 07:52] LABS: FREE PSA 1.99 ng/mL (0.00-45); PROSTATE SPECIFIC ANTIGEN SCR 5.93 ng/mL (0.00-4.00)
[2017-06-15 08:00] VITALS: BP 128/76
[2017-06-15] MEDS ORDERED: JEVITY 1.2 CAL 1,000 ML BOTTLE GT SCH (08:30)
[2017-06-15] MEDS ORDERED: hydrALAZINE HCL 25 MG TABLET PO SCH (09:00)
[2017-06-15] MEDS: DOXYCYCLINE HYCLATE (100 MG) 100 MG TABLET PO SCH ×2 (09:03→22:12)
[2017-06-15] MEDS: DOXAZOSIN MESYLATE (1 MG) 1 MG TABLET GT SCH (09:03)
[2017-06-15] MEDS: FOLIC ACID 1 MG TABLET GT SCH (09:03)
[2017-06-15] MEDS: ASPIRIN 81 MG TAB.CHEW PO SCH (09:03)
[2017-06-15] MEDS: FINASTERIDE (5 MG) 5 MG TABLET GT SCH (09:03)
[2017-06-15] MEDS: ISOSORBIDE DINITRATE (20MG) 20 MG TABLET PO SCH (09:03)
[2017-06-15] MEDS: LEVOTHYROXINE SODIUM 25 MCG TABLET PO SCH (09:03)
[2017-06-15] MEDS: CARBIDOPA/LEVODOPA 25/100 MG 1 UDTAB GT SCH ×4 (09:06→22:12)
--- NOTE | 2017-06-15 11:29 | NUR ---
WOUND CARE CONSULT: PT PRESENTS WITH STAGE 2 ULCER TO SACRUM, PRESENT ON ADMISSION. PT IS IMMOBILE WITH CURRENT PEPE SCORE OF 11. ALL SKIN PROTECTION AND WOUND CARE RECOMMENDATIONS DISCUSSED WITH NURSING STAFF. PT TO BE PLACED ON LEO ISOFLEX LOW AIRLOSS BED. WILL SEE PRN. PRITCHARD IN AGREEMENT WITH PLAN OF CARE. Addendum: 06/15/17 at 1131 by HERMAN HARMON WNDNU Amended: Links added.
[2017-06-15 12:00] VITALS: BP 115/72
[2017-06-15] MEDS ORDERED: Z GUARD REMEDY 2 OZ OINT TP PRN (12:00)
[2017-06-15] MEDS ORDERED: HYDROGEL DRESSING 90 GM TUBE TP PRN (12:00)
[2017-06-15] MEDS: HYDROGEL DRESSING 90 GM TUBE TP SCH (14:28)
[2017-06-15] MEDS: Z GUARD REMEDY 2 OZ OINT TP SCH (14:28)
[2017-06-15 16:00] VITALS: BP 106/78
[2017-06-15] MEDS: LACTOBACILLUS RHAMNOSUS GG 1 EACH CAP.SPRINK GT SCH (16:34)
[2017-06-15] MEDS: JEVITY 1.2 CAL 1,000 ML BOTTLE GT PRN (17:40)
--- NOTE | 2017-06-15 18:29 | NUR ---
SALES ASSOCIATE NOTES PATIENT RESTING INSIDE ROOM. AWAKE, ALERT, AROUSABLE THROUGH VERBAL AND TACTILE STIMULI.BREATHING EVEN AND UNLABORED. O2 AT 2L/MIN VIA NC. NO NASAL IRRITATION NOTED AT THIS TIME. DENIES ANY PAIN OR DISCOMFORT. NO FACIAL GRIMACE NOTED AT THIS TIME. CONTINUE WITH GTF OF JEVITY 1.2 ORDERED. GT REMAINS PATENT AND IN PLACE. GT SITE KEPT CLEAN AND DRY, ABD BINDER IN PLACE. CONTINUE WITH TELEMETRY MONITORING, REMAINS SINUS RHYTHM. IV SITE OF RIGHT WRIST INTACT AND PATENT, NO BLEEDING OR SWELLING NOTED. MAINTAINED ASPIRATION PRECAUTION, KEPT HOB ELEVATION OF 45. DUE MEDICATIONS GIVEN AND TOLERATED WELL. PROVIDED WITH CALM, SAFE, HAZARD-FREE ENVIRONMENT. PATIENT KEPT CLEAN, DRY AND COMFORTABLE. WILL ENDORSE TO INCOMING SHIFT FOR MAGGY. BED LOCKED AND IN LOW POSITION. BILATERAL UPPER SIDE RAILS UP AND LOCKED. CALL LIGHT WITHIN EASY REACH.
[2017-06-15 20:00] VITALS: BP 144/66
--- NOTE | 2017-06-15 20:10 | NUR ---
RN NOTES RECEIVED PATIENT AWAKE IN BED WITH NO RESPIRATORY DISTRESS OR SHORTNESS OF BREATH. BREATHING EVEN AND UNLABORED. NOTED WITH EYE TRACKING. ALERT TO SELF. NO PHYSICAL MANIFESTATION OF PAIN OR DISCOMFORT. ON O2 VIA NASAL CANNULA TOLERATING WELL. GTUBE IN PLACE AND INTACT. FEEDING WELL TOLERATED. INCONTINENT OF BLADDER AND BOWEL FUNCTION. KEPT CLEAN AND DRY. WILL CONTINUE TO MONITOR.
[2017-06-15] MEDS: CEFTRIAXONE 1 G in IV D5W 50 ML IV SCH (22:11)
[2017-06-15] MEDS: DONEPEZIL 5 MG TABLET GT SCH (22:12)
[2017-06-15] MEDS: ATORVASTATIN 10 MG TABLET GT SCH (22:12)
[2017-06-16] VITALS (7 sets, daily range): BP systolic 124–180; BP diastolic 55–90
--- NOTE | 2017-06-16 06:18 | NUR ---
RN NOTES RESTING COMFORTABLY IN BED WITH NO RESPIRATORY DISTRESS OR SHORTNESS OF BREATH. BREATHING EVEN AND UNLABORED. ON O2 AT 2LPM WELL TOLERATED. NO PHYSICAL MANIFESTATION OF PAIN OR DISCOMFORT. VITAL SIGNS WNL. NO SIGNIFICANT CHANGE OF CONDITION. WILL ENDORSE TO AM SHIFT FOR CONTINUIY OF CARE.
[2017-06-16 07:41] LABS: BASOPHILS % (AUTO) 0.3 % (0.0-2.0); EOSINOPHILS % (AUTO) 2.5 % (0.0-6.0); HEMATOCRIT 43 % (39-51); HEMOGLOBIN 14.6 g/dL (13.5-17.5); LYMPHOCYTES # (AUTO) 0.9 /CMM (0.8-4.8); LYMPHOCYTES % (AUTO) 12.8 % (20.0-44.0); MEAN CORPUSCULAR HGB CONC 34 g/dl (31.0-36.0); MEAN CORPUSCULAR VOLUME 97 fL (80-96); MONOCYTES # (AUTO) 0.7 /CMM (0.1-1.30); MONOCYTES % (AUTO) 8.8 % (2.0-12.0); NEUTROPHILS # (AUTO) 5.6 /CMM (1.8-8.9); NEUTROPHILS % (AUTO) 75.6 % (43.0-81.0); PLATELET COUNT (AUTO) 165 /CMM (150-450); RDW COEFFICIENT OF VARIATION 14.9 (11.5-15.0); RED BLOOD CELL COUNT(AUTO) 4.43 MIL/uL (4.5-6.0); WHITE BLOOD COUNT (AUTO) 7.4 K/uL (4.3-11.0)
[2017-06-16 07:54] LABS: CALCIUM, SERUM 8.2 mg/dL (8.5-10.1); CARBON DIOXIDE 29 mmol/L (21-32); CHLORIDE 108 mmol/L (98-107); CREATININE 1.2 mg/dL (0.6-1.3); GLUCOSE 100 mg/dL (74-106); POTASSIUM 4.3 mmol/L (3.5-5.1); SODIUM SERUM 142 mmol/L (136-145); UREA NITROGEN, BLOOD 19 mg/dL (7-18)
[2017-06-16] MEDS: LEVOTHYROXINE SODIUM 25 MCG TABLET PO SCH ×2 (07:59→08:47)
[2017-06-16] MEDS ORDERED: CLONIDINE HCL 0.1 MG TABLET PO PRN (08:00)
[2017-06-16] MEDS: CARBIDOPA/LEVODOPA 25/100 MG 1 UDTAB GT SCH ×4 (08:47→22:15)
[2017-06-16] MEDS: FINASTERIDE (5 MG) 5 MG TABLET GT SCH (08:48)
[2017-06-16] MEDS: LACTOBACILLUS RHAMNOSUS GG 1 EACH CAP.SPRINK GT SCH ×2 (08:48→17:05)
[2017-06-16] MEDS: ASPIRIN 81 MG TAB.CHEW PO SCH (08:48)
[2017-06-16] MEDS: DOXAZOSIN MESYLATE (1 MG) 1 MG TABLET GT SCH (08:48)
[2017-06-16] MEDS: DOXYCYCLINE HYCLATE (100 MG) 100 MG TABLET PO SCH ×2 (08:53→22:15)
[2017-06-16] MEDS: FOLIC ACID 1 MG TABLET GT SCH (08:53)
--- NOTE | 2017-06-16 09:30 | NUR ---
RN OPENING NOTES RECEIVED PT VIA AM AESTHETICIAN. PT STABLE AND RESTING IN BED. NO S/S OF SOB OR RESP DISTRESS. NO C/O PAIN AT THIS TIME. GT IN PLACE, INFUSING JEVITY AT 70 CC/HR. IV ACCESS LOCATED ON RIGHT WRIST 18 G SL. TELE MONITOR READING SR 80-85 BPM. SAFETY MEASURES IN PLACE, CALL LIGHT IN REACH. WILL CONTINUE TO MONITOR.
[2017-06-16] MEDS: HYDROGEL DRESSING 90 GM TUBE TP SCH (09:44)
[2017-06-16] MEDS: Z GUARD REMEDY 2 OZ OINT TP SCH (09:44)
--- NOTE | 2017-06-16 18:09 | NUR ---
RN CLOSING NOTES PT IN BED RESTING. NO S/S OF RESP DISTRESS OR SOB. NO C/O PAIN. GT FEEDING OF JEVITY RUNNING AT 70 ML/HR. SAFETY MEASURES IN PLACE, CALL LIGHT WITHIN REACH. WILL ENDORSE TO HYPERTRICHOLOGIST FOR MAGGY.
--- NOTE | 2017-06-16 20:05 | NUR ---
RN NOTES RECEIVED PATIENT WITH EYES OPEN IN BED. NO RESPIRATORY DISTRESS NOTED. BREATHING EVEN AND UNLABORED. NO PHYSICAL MANIFESTATION OF PAIN OR DISCOMFORT. GTUBE IN PLACE, FEEDING WELL TOLERATED. HOB ELEVATED. KEPT CLEAN AND DRY. WILL CONTINUE TO MONITOR.
[2017-06-16] MEDS: ATORVASTATIN 10 MG TABLET GT SCH (22:15)
[2017-06-16] MEDS: DONEPEZIL 5 MG TABLET GT SCH (22:16)
[2017-06-16] MEDS: CEFTRIAXONE 1 G in IV D5W 50 ML IV SCH (22:16)
[2017-06-17] VITALS: BP_SYST 139; BP_SYST 151; BP_DIAS 80; BP_DIAS 86
[2017-06-17 04:00] VITALS: BP 138/85
[2017-06-17 08:00] VITALS: BP 160/96
--- NOTE | 2017-06-17 08:00 | NUR ---
TELE1/RN AM SHIFT INITIAL NOTES RECEIVED AT AWAKE, ALERT, RESPONSIVE, MUMBLES, INCOHERENT. NO GRIMACING, RESPIRATORY DISTRESS OR FEVER NOTED. ON 2L O2 VIA N/C, SATURATING @ 99%, NOTED WITH HOARSE RHONCHI LUNG SOUNDS. ON TELE WITH SINUS RHYTHM, HR 63. IV SITE FLUSHED, PATENT WITH NO S/S OF INFECTION, SL. ON GOING GTF @ 60CC/HR, PATENT, WITH NO GASTRIC RESIDUAL, FLUSHED. PT IS COMFORTABLE, SCHEDULED AM MEDS TO BE GIVEN. CL WITHIN REACHED AND SAFETY MAINTAINED. ON GOING MONITORING.
[2017-06-17] MEDS: FOLIC ACID 1 MG TABLET GT SCH (10:20)
[2017-06-17] MEDS: LACTOBACILLUS RHAMNOSUS GG 1 EACH CAP.SPRINK GT SCH ×2 (10:20→17:44)
[2017-06-17] MEDS: FINASTERIDE (5 MG) 5 MG TABLET GT SCH (10:20)
[2017-06-17] MEDS: DOXYCYCLINE HYCLATE (100 MG) 100 MG TABLET PO SCH ×2 (10:20→22:42)
[2017-06-17] MEDS: CARBIDOPA/LEVODOPA 25/100 MG 1 UDTAB GT SCH ×4 (10:21→22:42)
[2017-06-17] MEDS: Z GUARD REMEDY 2 OZ OINT TP SCH (10:21)
[2017-06-17] MEDS: DOXAZOSIN MESYLATE (1 MG) 1 MG TABLET GT SCH (10:21)
[2017-06-17] MEDS: ASPIRIN 81 MG TAB.CHEW PO SCH (10:22)
[2017-06-17] MEDS: HYDROGEL DRESSING 90 GM TUBE TP SCH (10:22)
[2017-06-17 12:00] VITALS: BP_SYST 127; BP_SYST 129; BP_DIAS 77
--- NOTE | 2017-06-17 12:00 | NUR ---
MS1/RN NOON ROUNDS MOUTH CARE, [facility] AND REPOSITIONING PROVIDED. NO ACUTE CHANGE OF CONDITION. MONITORING CONTINUED.
[2017-06-17] MEDS: JEVITY 1.2 CAL 1,000 ML BOTTLE GT PRN (13:59)
[2017-06-17 16:00] VITALS: BP 174/99
--- NOTE | 2017-06-17 17:30 | NUR ---
MS1/RN AFTERNOON ROUNDS PM CARE PROVIDED. NO CHANGE OF CONDITION. ON GOING MONITORING.
[2017-06-17] MEDS: AMLODIPINE BESYLATE 5 MG TABLET GT SCH (17:44)
[2017-06-17 20:00] VITALS: BP 180/94
--- NOTE | 2017-06-17 20:09 | NUR ---
RN NOTES RECEIVED PATIENT IN BED WITH NO RESPIRATORY DISTRESS OR SHORTNESS OF BREATH. BREATHING EVEN AND UNLABORED. O2 AT 2LPM VIA NASAL CANNULA TOLERATED WELL. ALERT AND RESPONSIVE X 2. NO PHYSICAL MANIFESTATION OF PAIN OR DISCOMFORT. DAVALOS CATHETER IN PLACE DRAINING CLEAR YELLOW WITH NO FOUL ODOR URINE. GTUBE PATENT, FEEDING WELL TOLERATED. HOB ELEVATED. KEPT CLEAN AND DRY. WILL CONTINUE TO MONITOR.
--- NOTE | 2017-06-17 20:30 | NUR ---
MS1/RN AM SHIFT END NOTES ALL NEEDS MET. NO ACUTE CHANGE OF CONDITION DURING THE SHIFT. IV SITE INTACT & PATENT, NO S/S OF INFECTION, SL. G-TUBE INTACT. PT ENDORSED TO PM NURSE TO CONTINUE CARE. CL WITHIN REACHED AND SAFETY MAINTAINED.
[2017-06-17] MEDS: ATORVASTATIN 10 MG TABLET GT SCH (22:42)
[2017-06-17] MEDS: CEFTRIAXONE 1 G in IV D5W 50 ML IV SCH (22:42)
[2017-06-17] MEDS: DONEPEZIL 5 MG TABLET GT SCH (22:42)
[2017-06-18] VITALS: BP 175/99
[2017-06-18 04:00] VITALS: BP 178/92
--- NOTE | 2017-06-18 06:54 | NUR ---
RN CLOSING NOTES NO SIGNIFICANT CHANGE IN CONDITION. NO DISTRESS NOTED. BREATHING EVEN AND UNLABORED. NO PHYSICAL MANIFESTATION OF PAIN OR DISCOMFORT. VITAL SIGNS WNL. KEPT CLEAN AND DRY. WILL ENDORSE TO AM SHIFT FOR CONTINUITY OF CARE.
--- NOTE | 2017-06-18 07:00 | NUR ---
RN NOTES RECEIVED PT ON BED , A/OX1, ON 2 L O2 N/C , RESPIRATION EVEN AND UNLABORED, NO SOB NOTED, TF JEVITY AT 70CC/HR RUNNING VIA GT , TOLERATING WELL , NO SOB NOTED, R WRIST IV SITE G 18 CDI, SR UP x3, CALL LIGHT WITHIN EASY REACH , BED LOCKED AND IN LOWEST POSITION , WILL CONTINUE TO MONITOR
[2017-06-18 08:00] VITALS: BP 119/80
[2017-06-18] MEDS: DOXYCYCLINE HYCLATE (100 MG) 100 MG TABLET PO SCH ×2 (08:21→21:05)
[2017-06-18] MEDS: AMLODIPINE BESYLATE 5 MG TABLET GT SCH (08:22)
[2017-06-18] MEDS: ASPIRIN 81 MG TAB.CHEW PO SCH (08:22)
[2017-06-18] MEDS: FINASTERIDE (5 MG) 5 MG TABLET GT SCH (08:22)
[2017-06-18] MEDS: DOXAZOSIN MESYLATE (1 MG) 1 MG TABLET GT SCH (08:22)
[2017-06-18] MEDS: CARBIDOPA/LEVODOPA 25/100 MG 1 UDTAB GT SCH ×4 (08:22→21:06)
[2017-06-18] MEDS: LEVOTHYROXINE SODIUM 25 MCG TABLET PO SCH (08:22)
[2017-06-18] MEDS: FOLIC ACID 1 MG TABLET GT SCH (08:22)
[2017-06-18] MEDS: LACTOBACILLUS RHAMNOSUS GG 1 EACH CAP.SPRINK GT SCH ×2 (08:22→16:28)
[2017-06-18] MEDS: HYDROGEL DRESSING 90 GM TUBE TP SCH (08:23)
[2017-06-18] MEDS: Z GUARD REMEDY 2 OZ OINT TP SCH (08:23)
--- NOTE | 2017-06-18 12:00 | NUR ---
RN NOTES PT STABLE , NO DISTRESS NOTED , CONTINUE TO MONITOR
[2017-06-18 16:00] VITALS: BP_SYST 144; BP_SYST 167; BP_DIAS 66; BP_DIAS 88
[2017-06-18] MEDS: JEVITY 1.2 CAL 1,000 ML BOTTLE GT PRN (16:28)
--- NOTE | 2017-06-18 18:00 | NUR ---
RN NOTES PT REMAINS THE SAME , TOLERATING TF WELL, SR UP X3, CALL LIGHT WITHIN EASY REACH, WILL ENDOSE TO CERTIFIED NURSE PRACTITIONER NURSE FOR MAGGY.
--- NOTE | 2017-06-18 19:30 | NUR ---
MS RN INITIAL NOTE PT RECEIVED AWAKE IN BED. A/O X1-2 WITH NOTED CONFUSION. ON 2L OF O2 AND SATURATING 94%. BREATHING REGULAR AND UNLABORED. HOB ELEVATED AND ON ASPIRATION PRECAUTIONS. GTF WELL TOLERATED WITH 10ML RESIDUAL NOTED. BED ALARM ENABLED AND CALL LIGHT WITHIN REACH. IV CLEAN, DRY AND PATENT. WILL CONTINUE TO MONITOR.
[2017-06-18 20:00] VITALS: BP 170/96
[2017-06-18 21:00] VITALS: BP 155/90
[2017-06-18] MEDS: DONEPEZIL 5 MG TABLET GT SCH (21:05)
[2017-06-18] MEDS: ATORVASTATIN 10 MG TABLET GT SCH (21:06)
[2017-06-18] MEDS: CEFTRIAXONE 1 G in IV D5W 50 ML IV SCH (21:06)
[2017-06-19 04:00] VITALS: BP 118/81
--- NOTE | 2017-06-19 06:50 | NUR ---
MS RN CLOSING NOTE PT REMAINED STABLE DURING SHIFT. NO ACUTE DISTRESS NOTED. ALL NEEDS ATTENDED TO PROMPTLY. O2 WELL TOLERATED. HOB ELEVATED. KEPT CLEAN AND DRY. REPOSITIONED Q2H. WILL ENDORSE TO NEXT SHIFT FOR CONTINUITY OF CARE.
[2017-06-19 06:52] LABS: CALCIUM, SERUM 8.7 mg/dL (8.5-10.1); CARBON DIOXIDE 24 mmol/L (21-32); CHLORIDE 104 mmol/L (98-107); CREATININE 1.1 mg/dL (0.6-1.3); GLUCOSE 135 mg/dL (74-106); POTASSIUM 3.8 mmol/L (3.5-5.1); SODIUM SERUM 140 mmol/L (136-145); UREA NITROGEN, BLOOD 24 mg/dL (7-18)
--- NOTE | 2017-06-19 07:05 | NUR ---
RN NOTE PT RECEIVED ON BED, A/Ox1, ON 2L O2 N/C , RESPIRATION EVEN AND UNLABORED, NO SOB NOTED . TOLERATING TF AT 70CC/HR WELL , NO RESIDUAL NOTED THIS AM , R WRIST IV SITE G 18 CDI, HOB ELEVATED AND ON ASPIRATION PRECAUTIONS. BED ALARM ON , CALL LIGHT WITHIN EASY REACH. BED LOCKED AND IN LOWEST POSITION , SR UPx3, WILL CONTINUE TO MONITOR.
[2017-06-19 07:11] LABS: BASOPHILS % (AUTO) 0.3 % (0.0-2.0); EOSINOPHILS % (AUTO) 0.5 % (0.0-6.0); HEMATOCRIT 47 % (39-51); HEMOGLOBIN 16.1 g/dL (13.5-17.5); LYMPHOCYTES # (AUTO) 1.2 /CMM (0.8-4.8); LYMPHOCYTES % (AUTO) 13.2 % (20.0-44.0); MEAN CORPUSCULAR HGB CONC 34 g/dl (31.0-36.0); MEAN CORPUSCULAR VOLUME 97 fL (80-96); MONOCYTES # (AUTO) 0.6 /CMM (0.1-1.30); MONOCYTES % (AUTO) 7.4 % (2.0-12.0); NEUTROPHILS # (AUTO) 6.9 /CMM (1.8-8.9); NEUTROPHILS % (AUTO) 78.6 % (43.0-81.0); PLATELET COUNT (AUTO) 162 /CMM (150-450); RDW COEFFICIENT OF VARIATION 15.4 (11.5-15.0); RED BLOOD CELL COUNT(AUTO) 4.91 MIL/uL (4.5-6.0); WHITE BLOOD COUNT (AUTO) 8.8 K/uL (4.3-11.0)
[2017-06-19 08:00] VITALS: BP 179/86
[2017-06-19] MEDS: DOXYCYCLINE HYCLATE (100 MG) 100 MG TABLET PO SCH (08:40)
[2017-06-19] MEDS: FINASTERIDE (5 MG) 5 MG TABLET GT SCH (08:40)
[2017-06-19] MEDS: FOLIC ACID 1 MG TABLET GT SCH (08:40)
[2017-06-19] MEDS: LEVOTHYROXINE SODIUM 25 MCG TABLET PO SCH (08:40)
[2017-06-19] MEDS: LACTOBACILLUS RHAMNOSUS GG 1 EACH CAP.SPRINK GT SCH (08:40)
[2017-06-19] MEDS: ASPIRIN 81 MG TAB.CHEW PO SCH (08:40)
[2017-06-19] MEDS: CARBIDOPA/LEVODOPA 25/100 MG 1 UDTAB GT SCH ×2 (08:40→13:11)
[2017-06-19] MEDS: AMLODIPINE BESYLATE 5 MG TABLET GT SCH (08:41)
[2017-06-19] MEDS: DOXAZOSIN MESYLATE (1 MG) 1 MG TABLET GT SCH (08:41)
[2017-06-19] MEDS: HYDROGEL DRESSING 90 GM TUBE TP SCH (08:42)
[2017-06-19] MEDS: Z GUARD REMEDY 2 OZ OINT TP SCH (08:42)
[2017-06-19 12:00] VITALS: BP 142/94
--- NOTE | 2017-06-19 13:20 | NUR ---
RN NOTES REPORT GIVEN TO SNF AND EMT , PT LEFT THE FLOOR TO MAIN ENTRANCE ACCOMPANIED BY EMT PERSONEAL IN STABLE CONDITION .
[2017-08-24] MEDS ORDERED: FINA5TAB4 GT (09:10)
[2017-08-24] MEDS ORDERED: ASPI-1169 GT (09:10)
[2017-08-24] MEDS ORDERED: AMLO2.5T3 GT (09:10)
[2017-08-24] MEDS ORDERED: HYDR20VI4 IJ (09:10)
[2017-08-24] MEDS ORDERED: MAGN400O6 GT (09:10)
[2017-08-24] MEDS ORDERED: NA P133E RC (09:10)
[2017-08-24] MEDS ORDERED: NUTR1PAC14 GT (09:10)
[2017-08-24] MEDS ORDERED: ALBU1.257 IH (09:10)
[2017-08-24] MEDS ORDERED: ACET-868 GT (09:10)
[2017-08-24] MEDS ORDERED: POLY15DR40 EACHEYE (09:10)
[2017-08-24] MEDS ORDERED: BISA10SU8 RC (09:10)
== END 2017-06-19 15:11 | DRG 871 ==
LOC: ER 12:25 → TELE1 14:07 → MEDSG1 06-17 08:32
PROVIDERS: ADMIT Internal Medicine; ATTEND Internal Medicine
DX: A41.9 Sepsis, unspecified organism (principal); G93.40 Encephalopathy, unspecified; J69.0 Pneumonitis due to inhalation of food and vomit; J96.90 Respiratory failure, unspecified, unspecified whether with hypoxia or hypercapnia; R65.21 Severe sepsis with septic shock; N17.9 Acute kidney failure, unspecified; J15.9 Unspecified bacterial pneumonia; E46 Unspecified protein-calorie malnutrition; I25.10 Atherosclerotic heart disease of native coronary artery without angina pectoris; C61 Malignant neoplasm of prostate; D69.6 Thrombocytopenia, unspecified; E03.9 Hypothyroidism, unspecified; E11.9 Type 2 diabetes mellitus without complications; Z98.61 Coronary angioplasty status; I10 Essential (primary) hypertension; Z88.2 Allergy status to sulfonamides; G20 Parkinson's disease; F02.80 Dementia in other diseases classified elsewhere, unspecified severity, without behavioral disturbance, psychotic disturbance, mood disturbance, and anxiety; Z68.23 Body mass index [BMI] 23.0-23.9, adult; Z93.1 Gastrostomy status; G30.9 Alzheimer's disease, unspecified
CPT/HCPCS: 36415; 71045-TC; 80048-TC; 80076-TC; 81000-TC; 83605-TC; 83880; 84153-TC; 84154-TC; 84484-TC; 85025-TC; 85730-TC; 87040-TC; 87081-TC; 87086-TC; A4606; A6248; A6403; J0696; J1956; J7030; J7040; J7050; J7060; Z7610

== ENCOUNTER 2017-07-22 08:56 | Inpatient (IN) | payer MEDICARE, OTHER ==
[~2017-07-22] VITALS: Ht 182.9 cm; Wt 76.3 kg
[~2017-07-22 08:56] MED LIST changes: -ACET-868 GT; +ATOR10TA GT; +CHOL200026 GT; -DIVA250T4 PO; +HYDR-4076 GT; -HYDR-4077 GT; +LEVO25TA9 GT; -LEVO50TA8 GT; +NUTR250L50 GT; -QUET25TA GT
--- NOTE | 2017-07-22 08:56 | NUR ---
BIB EMS FROM ASSISTED, PT IS NOT ACTING NORMAL PER STAFF. MORE ALTERED THAN BASELINE
--- NOTE | 2017-07-22 09:14 | NUR ---
LINE STARTED ON R FA G 20, BLOOD AND CULTURES DRAWN AND SENT TO LAB
[2017-07-22 09:19] LABS: BASOPHILS % (AUTO) 0.1 % (0.0-2.0); EOSINOPHILS % (AUTO) 0.4 % (0.0-6.0); HEMATOCRIT 47 % (39-51); HEMOGLOBIN 15.9 g/dL (13.5-17.5); LYMPHOCYTES # (AUTO) 0.8 /CMM (0.8-4.8); LYMPHOCYTES % (AUTO) 8.1 % (20.0-44.0); MEAN CORPUSCULAR HGB CONC 34 g/dl (31.0-36.0); MEAN CORPUSCULAR VOLUME 95 fL (80-96); MONOCYTES # (AUTO) 0.4 /CMM (0.1-1.30); MONOCYTES % (AUTO) 3.7 % (2.0-12.0); NEUTROPHILS # (AUTO) 8.3 /CMM (1.8-8.9); NEUTROPHILS % (AUTO) 87.7 % (43.0-81.0); PLATELET COUNT (AUTO) 200 /CMM (150-450); RDW COEFFICIENT OF VARIATION 15.9 (11.5-15.0); RED BLOOD CELL COUNT(AUTO) 4.97 MIL/uL (4.5-6.0); WHITE BLOOD COUNT (AUTO) 9.4 K/uL (4.3-11.0)
[2017-07-22 09:30] LABS: CALCIUM, SERUM 9.2 mg/dL (8.5-10.1); CARBON DIOXIDE 26 mmol/L (21-32); CHLORIDE 104 mmol/L (98-107); CREATININE 1.2 mg/dL (0.6-1.3); GLUCOSE 123 mg/dL (74-106); POTASSIUM 4.2 mmol/L (3.5-5.1); SODIUM SERUM 138 mmol/L (136-145); UREA NITROGEN, BLOOD 27 mg/dL (7-18)
[2017-07-22 09:34] LABS: INR 0.94 (0.87-1.13)
[2017-07-22 09:36] LABS: ALANINE AMINOTRANSFERASE 14 U/L (12-78); ALBUMIN 2.8 g/dL (3.4-5.0); ALKALINE PHOSPHATASE 161 U/L (46-116); ASPARTATE AMINOTRANSFERASE 31 U/L (15-37); BILIRUBIN,DIRECT 0.1 mg/dL (0.0-0.2); BILIRUBIN,TOTAL 0.7 mg/dL (0.2-1.0); TOTAL PROTEIN, SERUM 7.4 g/dL (6.4-8.2)
[2017-07-22 09:39] LABS: TROPONIN I < 0.017 ng/mL (0.00-0.056)
[2017-07-22 09:42] LABS: APPEARANCE,URINE Clear (CLEAR); BILIRUBIN,URINE Negative (NEGATIVE); BLOOD, URINE Negative Ery/uL (NEGATIVE); COLOR,URINE Yellow (YELLOW); KETONES,URINE Negative (NEGATIVE); LEUKOCYTE ESTERASE ,URINE Negative (NEGATIVE); NITRITE, URINE Negative (NEGATIVE); PROTEIN,URINE >=300 mg/dl (NEGATIVE); UGLUCOSE Negative (NEGATIVE); UROBILINOGEN,URINE 0.2 EU/dL (0.2)
--- NOTE | 2017-07-22 10:34 | NUR ---
MS-323.1 NURSE GARRIDO
--- NOTE | 2017-07-22 11:23 | NUR ---
REPORT GIVEN TO YVAN GTZ FOR CONTINUTIY OF CARE ON TELE UNIT
[2017-07-22 11:45] VITALS: BP 143/94
--- NOTE | 2017-07-22 11:55 | NUR ---
HOSPITAL ADMITTING CLERK - ADMISSION NOTES Received patient from ER awake, unable to follow commands. Admitted for Altered mental status. Tele shows SR, HR 82 with bundle branch block. On oxygen therapy @2LPM via nasal cannula. No complaints of any pain or discomfort. No face grimacing noted. Skin body assessment done. Notified Dr. Doron Candelaria upon admission. Safety measures in place. Bed in lowest position. call light within reach with bed alarm on.
[2017-07-22 12:00] VITALS: BP 143/94
--- NOTE | 2017-07-22 12:30 | NUR ---
RN NOTES - CODE STATUS Spoke to and verified DNR status with DPOA (Daughter) Margaret Eloina [phone], with another RN.
--- NOTE | 2017-07-22 12:59 | NUR ---
RN NOTES - ORDER VERIFICATION Spoke with Dr. Candelaria: verified orders and DNR status - with another nurse. Medication list faxed to Pharmacy.
[2017-07-22] MEDS ORDERED: ALBUTEROL HALF STRENGTH 1.25 MG/3 ML VIAL.NEB NEB PRN (13:30)
--- NOTE | 2017-07-22 13:31 | NUR ---
Patient has been seen by Dr. Candelaria. Continue on tele monitoring and seizure precaution. New order of Albuterol 1.25 Q4H PRN for wheezing or shortness or breath.
[2017-07-22] MEDS ORDERED: [UNRECOGNIZED DRUG - OTHER] GT SCH (14:00)
[2017-07-22 16:00] VITALS: BP 142/85
[2017-07-22] MEDS: CARBIDOPA/LEVODOPA 25/100 MG 1 UDTAB GT SCH ×2 (17:05→21:31)
[2017-07-22] MEDS: MEMANTINE HCL 5 MG TABLET GT SCH (17:06)
[2017-07-22] MEDS: POLYVINYL ALCOHOL 15 ML BOTTLE EACHEYE SCH (17:08)
[2017-07-22] MEDS: JEVITY 1.2 CAL 1,000 ML BOTTLE GT PRN (17:17)
--- NOTE | 2017-07-22 17:50 | NUR ---
LEFT BUTTOCK AND SACRAL REDNESS, INFORMED DR. MOJICA. WILL USE AND APPLY REMEDY ZGUARD TO BUTTOCKS AND SACRAL REDNESS ORDERED.
[2017-07-22] MEDS ORDERED: Z GUARD REMEDY 2 OZ OINT TP PRN (18:00)
--- NOTE | 2017-07-22 19:25 | NUR ---
TRUCK LOADER OVERHEAD CRANE CLOSING NOTES Patient endorsed to oncoming nurse. Patient remained stable since admission. COntinue on oxygen therapy. Breathing treatment given by RT. New order of Logan from . Turned and reposition patient every 2 hours. HOB elevated. GTube in placed, patent; Feeding tolerating well. Case mgmt consult ordered. Safety measures in place. Bed in lowest position with bed alarm on. Call light within reach.
--- NOTE | 2017-07-22 19:30 | NUR ---
RECEIVED PATIENT IN BED AWAKE, CONFUSED, UNCLEAR SPEECH. NO ACUTE DISTRESS NOTED. NO SIGNS OF PAIN NOTED. TELE READING SINUS WITH BBB HR 83. IV SITE PATENT, INTACT; FLUSHED. GT PATENT, INTACT; GTF ONGOING ORDERED. PATIENT TOLERATING GTF; NO RESIDUAL TAKEN. HOB RAISED. ON LOW BED WITH BILATERAL UPPER SIDE RAILS UP. CALL HUNT WITHIN EASY REACH. WILL CONTINUE TO MONITOR.
[2017-07-22 20:00] VITALS: BP 137/86
[2017-07-22] MEDS: hydrALAZINE HCL 25 MG TABLET PO SCH (21:31)
[2017-07-22] MEDS: ATORVASTATIN 10 MG TABLET GT SCH (21:31)
[2017-07-22] MEDS: DONEPEZIL 5 MG TABLET GT SCH (21:31)
[2017-07-23] VITALS: BP 145/88
[2017-07-23 04:00] VITALS: BP 158/87
[2017-07-23] MEDS: JEVITY 1.2 CAL 1,000 ML BOTTLE GT PRN ×2 (05:32→21:56)
--- NOTE | 2017-07-23 07:00 | NUR ---
RN NOTES PATIENT IN BED ASLEEP, EASILY AROUSABLE. RESPIRATIONS EVEN. NO SIGNS OF PAIN NOTED. DUE MEDS GIVEN WITH NO ASE NOTED. NEEDS ATTENDED. KEPT CLEAN, DRY, AND COMFORTABLE. SAFETY PRECAUTIONS AND COMFORT MEASURES IN PLACE. WILL GIVE REPORT TO DAY SHIFT FOR CONTINUITY OF CARE.
--- NOTE | 2017-07-23 07:50 | NUR ---
CUSHION SEWER OPENING NOTES RECEIVED IN BED ASLEEP. IN STABLE CONDITION. BREATHING EVEN AND UNLABORED. NO APPARENT DISTRESS. NO EVIDENCE OF PAIN OR DISCOMFORT; NO FACIAL GRIMACING. SR @ 79. ON GT FEEDING - INTACT AND INFUSING WELL. IV LINE INTACT AND PATENT. CLEAN, DRY, AND COMFORTABLE. CALL LIGHT WITHIN REACH. SAFETY MEASURES IN PLACE.
[2017-07-23 08:00] VITALS: BP 147/100
[2017-07-23] MEDS: POLYVINYL ALCOHOL 15 ML BOTTLE EACHEYE SCH ×3 (08:07→16:52)
[2017-07-23] MEDS: MEMANTINE HCL 5 MG TABLET GT SCH ×2 (08:07→16:52)
[2017-07-23] MEDS: CHOLECALCIFEROL 1,000 UNIT TABLET (VIT D3) GT SCH (08:07)
[2017-07-23] MEDS: FINASTERIDE (5 MG) 5 MG TABLET GT SCH (08:07)
[2017-07-23] MEDS: CARBIDOPA/LEVODOPA 25/100 MG 1 UDTAB GT SCH ×4 (08:07→21:45)
[2017-07-23] MEDS: hydrALAZINE HCL 25 MG TABLET PO SCH ×2 (08:08→21:46)
[2017-07-23] MEDS: ASPIRIN 81 MG TAB.CHEW GT SCH (08:08)
[2017-07-23] MEDS: LEVOTHYROXINE SODIUM 25 MCG TABLET GT SCH (08:15)
[2017-07-23 16:00] VITALS: BP 137/81
--- NOTE | 2017-07-23 18:13 | NUR ---
Patient has hx of dementia,resides at [facility] [phone],currently on bedhold x7days. He requires max assist with adl's. Current dc plan is to dc back to SNF. Addendum: 07/23/17 at 1813 by MELINA MOYA RN Amended: Links added.
--- NOTE | 2017-07-23 19:49 | NUR ---
CUSTOMS COMPLIANCE DIRECTOR CLOSING NOTES PATIENT IN BED WITH EYES OPEN. BREATHING EVEN AND UNLABORED. ON 2L OXYGEN VIA NC. NO SIGNS OF DISTRESS. ON GT FEEDING JEVITY 1.2 @ 70ML/HR - TOLERATING WELL. PATIENT IS SR 79 IN TELE MONITOR. WITH ORDERS FOR EEG. NO EPISODES OF SEIZURES THROUGHOUT SHIFT. SEIZURE PRECAUTIONS IN PLACE. KEPT CLEAN, DRY AND COMFORTABLE. SUCTIONED ORAL SECRETIONS PRN. MAINTAINED HEAD OF THE BED ELEVATED. SAFETY PRECAUTIONS IN PLACE. CALL LIGHT WITHIN REACH. ENDORSED TO ON COMING RN FOR CONTINUITY OF CARE.
--- NOTE | 2017-07-23 20:00 | NUR ---
TELERN AWAKE, ALTERED, HOB 30 DEGREES, GT FEEDINGS AT 70 CC/HR TOLERATED. NO RESIDUALS OF THIS TIME. NO SOB, CONTINUED MONITORING. SR ON THE MONITOR.
[2017-07-23 20:08] VITALS: BP 141/99
[2017-07-23 20:39] VITALS: BP 141/99
[2017-07-23] MEDS: DONEPEZIL 5 MG TABLET GT SCH (21:45)
[2017-07-23] MEDS: ATORVASTATIN 10 MG TABLET GT SCH (21:45)
--- NOTE | 2017-07-23 22:00 | NUR ---
TELERN TOLERATED GT FEEDINGS. NO RESIDUALS. DUE MEDS ADMINISTERED VIA GT. SUCTIONED OUT THICK MUCUS MODERATE AMOUNT. KEPT COMFORTABLE, CONTINUED MONITORING.
[2017-07-24] VITALS: BP 149/82
[2017-07-24 00:19] VITALS: BP 149/82
[2017-07-24 04:00] VITALS: BP 158/87
--- NOTE | 2017-07-24 06:42 | NUR ---
MSRN AM CARE DONE, TOTAL OF 3 VOIDS AND 1 BM. KEPT NPO. GT FEEDINGS WELL TOLERATED.
--- NOTE | 2017-07-24 06:43 | NUR ---
TELERN REMAINS SR ON THE MONITOR. CLOSELY WATCHED
[2017-07-24 07:22] LABS: BASOPHILS % (AUTO) 0.2 % (0.0-2.0); EOSINOPHILS % (AUTO) 3.1 % (0.0-6.0); HEMATOCRIT 43 % (39-51); HEMOGLOBIN 14.8 g/dL (13.5-17.5); LYMPHOCYTES # (AUTO) 1.3 /CMM (0.8-4.8); LYMPHOCYTES % (AUTO) 18.6 % (20.0-44.0); MEAN CORPUSCULAR HGB CONC 34 g/dl (31.0-36.0); MEAN CORPUSCULAR VOLUME 94 fL (80-96); MONOCYTES # (AUTO) 0.6 /CMM (0.1-1.30); MONOCYTES % (AUTO) 9.3 % (2.0-12.0); NEUTROPHILS # (AUTO) 4.8 /CMM (1.8-8.9); NEUTROPHILS % (AUTO) 68.8 % (43.0-81.0); PLATELET COUNT (AUTO) 211 /CMM (150-450); RDW COEFFICIENT OF VARIATION 15.7 (11.5-15.0); RED BLOOD CELL COUNT(AUTO) 4.56 MIL/uL (4.5-6.0)
--- NOTE | 2017-07-24 07:50 | NUR ---
RELIEF WORKER OPENING NOTES RECEIVED IN BED ASLEEP. IN STABLE CONDITION. BREATHING EVEN AND UNLABORED. NO APPARENT DISTRESS. NO EVIDENCE OF PAIN OR DISCOMFORT; NO FACIAL GRIMACING. ON GT FEEDING - INTACT AND INFUSING WELL. IV LINE INTACT AND PATENT. CLEAN, DRY, AND COMFORTABLE. CALL LIGHT WITHIN REACH. SAFETY MEASURES IN PLACE.
[2017-07-24 07:55] LABS: CALCIUM, SERUM 8.5 mg/dL (8.5-10.1); CARBON DIOXIDE 27 mmol/L (21-32); CHLORIDE 109 mmol/L (98-107); CREATININE 1.2 mg/dL (0.6-1.3); GLUCOSE 126 mg/dL (74-106); POTASSIUM 4.1 mmol/L (3.5-5.1); SODIUM SERUM 143 mmol/L (136-145); UREA NITROGEN, BLOOD 27 mg/dL (7-18)
[2017-07-24 08:00] VITALS: BP 148/76
[2017-07-24] MEDS: ASPIRIN 81 MG TAB.CHEW GT SCH (08:24)
[2017-07-24] MEDS: FINASTERIDE (5 MG) 5 MG TABLET GT SCH (08:24)
[2017-07-24] MEDS: CHOLECALCIFEROL 1,000 UNIT TABLET (VIT D3) GT SCH (08:24)
[2017-07-24] MEDS: MEMANTINE HCL 5 MG TABLET GT SCH ×2 (08:24→16:23)
[2017-07-24] MEDS: LEVOTHYROXINE SODIUM 25 MCG TABLET GT SCH (08:24)
[2017-07-24] MEDS: CARBIDOPA/LEVODOPA 25/100 MG 1 UDTAB GT SCH ×4 (08:24→22:08)
[2017-07-24] MEDS: hydrALAZINE HCL 25 MG TABLET PO SCH ×2 (08:25→22:09)
[2017-07-24] MEDS: POLYVINYL ALCOHOL 15 ML BOTTLE EACHEYE SCH ×3 (08:25→16:23)
[2017-07-24 16:00] VITALS: BP 153/97
[2017-07-24] MEDS: JEVITY 1.2 CAL 1,000 ML BOTTLE GT PRN (16:42)
--- NOTE | 2017-07-24 18:39 | NUR ---
RN MS CLOSING NOTES PATIENT IN BED WITH EYES OPEN. BREATHING EVEN AND UNLABORED. ON 2L OXYGEN VIA NC. NO SIGNS OF DISTRESS. ON GT FEEDING JEVITY 1.2 @ 70ML/HR - TOLERATING WELL. AWAITING EEG RESULTS. NO EPISODES OF SEIZURES THROUGHOUT SHIFT. SEIZURE PRECAUTIONS IN PLACE. KEPT CLEAN, DRY AND COMFORTABLE. SUCTIONED ORAL SECRETIONS PRN. MAINTAINED HEAD OF THE BED ELEVATED. SAFETY PRECAUTIONS IN PLACE. CALL LIGHT WITHIN REACH. ENDORSED TO ON COMING RN FOR CONTINUITY OF CARE.
--- NOTE | 2017-07-24 19:45 | NUR ---
MSRN AWAKE, TRYING TO COMMUNICATE, REPOSITIONED FOR COMFORT. HOB TO 40 DEGREES, GT FEEDINGS TOLERATED WELL. NO RESIDUALS. NO SOB, O2 AT 2L VIA NC MAINTAINED.
[2017-07-24 20:00] VITALS: BP 152/92
[2017-07-24] MEDS: DONEPEZIL 5 MG TABLET GT SCH (22:08)
[2017-07-24] MEDS: ATORVASTATIN 10 MG TABLET GT SCH (22:08)
--- NOTE | 2017-07-24 22:10 | NUR ---
MSRN DUE MEDS ADMINISTERED VIA GT. FEEDINGS HELD FOR FEW MIN. HS CARE STARTED.
--- NOTE | 2017-07-24 23:08 | NUR ---
MSRN TOTALLY BATHED. INCONTINENT OF URINE AND STOOLS. KEPT DRY CLEAN AND COMFORTABLE. REPOSITIONED. CONOR HEELS OFFLOAD MATTRESS. FEEDINGS CONTINUED, NO RESIDUALS.
--- NOTE | 2017-07-24 23:10 | NUR ---
MSRN OBSERVED PATIENT TRYING TO TAKE OFF O2, REMOVED O2, CHECKED EARS FOUND OPEN WOUND TO BOTH BEHIND EARS WITH SLIGHT BLEEDING. SITE CLEANSED WITH MOIST GUAZE, COVERED WITH PETROLEUM GUAZE. WILL NEED WOUND CARE NURSE TO SEE AND EVAL WOUND. UNABLE TO TAKE PICTURE OF THIS TIME. PATIENT UNCOOPERATIVE WHEN SITE TOUCH.
[2017-07-25] MEDS: JEVITY 1.2 CAL 1,000 ML BOTTLE GT PRN (05:23)
--- NOTE | 2017-07-25 06:16 | NUR ---
MSRN PARTIALLY BATHED AGAIN HAD LARGE SOFT BM. KEPT DRY CLEAN AND COMFORTABLE.
--- NOTE | 2017-07-25 06:22 | NUR ---
MSRN WILL ENDORSE TO INCOMING NURSE REGARDING GETTING ORDER FOR WOUND CONSULT.
--- NOTE | 2017-07-25 07:00 | NUR ---
MSRN ENDORSED TO INCOMING RN REGARDING WOUNDS BEHIND BOTH EARS, AND NEED PICTURES TO BE TAKEN. ENDORSED NEED TO FOLLOW UP WOUND CONSULT.
--- NOTE | 2017-07-25 07:30 | NUR ---
RN MS OPENING NOTES PATIENT AWAKE IN BED. ALERT AND ORIENTED X1. IN STABLE CONDITION. BREATHING EVEN AND UNLABORED. ON ROOM AIR WITH O2SAT 96%. NO APPARENT DISTRESS. NO EVIDENCE OF PAIN OR DISCOMFORT; NO FACIAL GRIMACING. ON GT FEEDING - INTACT AND INFUSING WELL, ALSO TOLERATING WELL. NO RESIDUAL. IV LINE INTACT AND PATENT. CLEAN, DRY, AND COMFORTABLE. CALL LIGHT WITHIN REACH. SAFETY MEASURES IN PLACE. ON SEIZURE PRECAUTIONS.
[2017-07-25 08:00] VITALS: BP 163/92
--- NOTE | 2017-07-25 08:42 | NUR ---
WOUND CARE CONSULT: PT PRESENTS WITH SCARRING TO SACRUM AND BUTTOCKS, SCAR TO POSTERIOR RT UPPER EAR AND WOUND TO LEFT POSTERIOR UPPER EAR. PT IS INCONTINENT. ALL SKIN PROTECTION AND WOUND CARE RECOMMENDATIONS DISCUSSED WITH NURSING STAFF. LEO ISOFLEX LOW AIRLOSS BED TO BE PLACED. WILL SEE PRN. CURRENT PEPE SCORE IS 10. IN AGREEMENT WITH PLAN OF CARE. Addendum: 07/25/17 at 0844 by HERMAN HARMON WNDNU Amended: Links added.
[2017-07-25] MEDS: CARBIDOPA/LEVODOPA 25/100 MG 1 UDTAB GT SCH ×3 (09:33→16:52)
[2017-07-25] MEDS: ASPIRIN 81 MG TAB.CHEW GT SCH (09:33)
[2017-07-25] MEDS: MEMANTINE HCL 5 MG TABLET GT SCH ×2 (09:33→16:52)
[2017-07-25] MEDS: FINASTERIDE (5 MG) 5 MG TABLET GT SCH (09:33)
[2017-07-25] MEDS: CHOLECALCIFEROL 1,000 UNIT TABLET (VIT D3) GT SCH (09:33)
[2017-07-25] MEDS: LEVOTHYROXINE SODIUM 25 MCG TABLET GT SCH (09:33)
[2017-07-25] MEDS: hydrALAZINE HCL 25 MG TABLET PO SCH (09:34)
[2017-07-25] MEDS: POLYVINYL ALCOHOL 15 ML BOTTLE EACHEYE SCH ×3 (09:34→16:52)
--- NOTE | 2017-07-25 13:54 | NUR ---
RN MS NOTES DR. MOJICA INFORMED OF PT'S LEFT POSTERIOR UPPER EAR WOUND, ORDERED WARM COMPRESSES, NOTED AND CARRIED OUT.
[2017-07-25 16:00] VITALS: BP 145/85
--- NOTE | 2017-07-25 19:13 | NUR ---
CHEMISTRY PROFESSOR NOTES PATIENT SEEN TODAY BY MD WITH ORDER FOR DISCHARGE TO [facility]. PATIENT WAS DISCHARGED TO [facility] AT 1900. REPORT GIVEN TO TRESA PATEL, REGARDING PLAN OF CARE WELL THE MEDICATIONS TO BE CONTINUED AT FACILITY - VERBALIZED UNDERSTANDING. DAUGHTER, CATALINO, WAS NOTIFIED OF DISCHARGE BY MICA PLATE LAYER HAND. BELONGINGS ACCOUNTED FOR. PATIENT WAS PICKED UP BY AMBULANCE VIA GURNEY IN STABLE CONDITION. IV LINE REMOVED.
[2017-08-24] MEDS ORDERED: HYDR20VI4 IJ (09:10)
[2017-08-24] MEDS ORDERED: BISA10SU8 RC (09:10)
[2017-08-24] MEDS ORDERED: POLY15DR40 EACHEYE (09:10)
[2017-08-24] MEDS ORDERED: ASPI-1169 GT (09:10)
[2017-08-24] MEDS ORDERED: ACET-868 GT (09:10)
[2017-08-24] MEDS ORDERED: NUTR1PAC14 GT (09:10)
[2017-08-24] MEDS ORDERED: FINA5TAB4 GT (09:10)
[2017-08-24] MEDS ORDERED: ALBU1.257 IH (09:10)
[2017-08-24] MEDS ORDERED: MAGN400O6 GT (09:10)
[2017-08-24] MEDS ORDERED: AMLO2.5T3 GT (09:10)
[2017-08-24] MEDS ORDERED: NA P133E RC (09:10)
== END 2017-07-25 18:30 | DRG 101 ==
LOC: ER 08:57 → TELE 11:23 → MED 07-23 16:21 → TELE 07-23 19:31 → MED 07-24 09:36
PROVIDERS: ADMIT Internal Medicine; ATTEND Internal Medicine
DX: G40.409 Other generalized epilepsy and epileptic syndromes, not intractable, without status epilepticus (principal); G20 Parkinson's disease; G30.9 Alzheimer's disease, unspecified; F02.80 Dementia in other diseases classified elsewhere, unspecified severity, without behavioral disturbance, psychotic disturbance, mood disturbance, and anxiety; J44.9 Chronic obstructive pulmonary disease, unspecified; K21.9 Gastro-esophageal reflux disease without esophagitis; Z85.46 Personal history of malignant neoplasm of prostate; E03.9 Hypothyroidism, unspecified; I10 Essential (primary) hypertension; Z88.2 Allergy status to sulfonamides; Z87.01 Personal history of pneumonia (recurrent); R13.10 Dysphagia, unspecified; I25.10 Atherosclerotic heart disease of native coronary artery without angina pectoris; Z79.82 Long term (current) use of aspirin; Z98.61 Coronary angioplasty status; Z93.1 Gastrostomy status
CPT/HCPCS: 36415; 70450-TC; 71045-TC; 80048-TC; 80076-TC; 81000-TC; 83605-TC; 84484-TC; 85025-TC; 85730-TC; 87040-TC; 87081-TC; 87086-TC; 95819-TC; A4606; A6402; J7030; Z7610